=== PATIENT | female | born 1995 | race Caucasian/White ===

== ENCOUNTER 2016-02-15 19:49 | Emergency (ER) | payer OTHER ==
[2016-02-15 20:49] VITALS: BP 117/74; PULSE 59; RESP 16; TEMP 98.4; O2SAT 96
--- NOTE | 2016-02-15 20:58 | UCPHY ---
H & P Time Seen by Provider: 02/15/16 20:56 Patient Type: New HPI/ROS: CHIEF COMPLAINT: Left mid-thoracic pain. HISTORY OF PRESENT ILLNESS: The patient is a 20-year-old female who presents with atraumatic left mid-thoracic pain, onset last night in the middle of the night. The pain is described as sharp and does not radiate. The pain is worsened with deep breathing, movement, or pressure.. She denies associated fever, urinary symptoms, cold symptoms, right-sided back pain, recent sickness. She took Advil this morning for the pain to no effect. REVIEW OF SYSTEMS: Aside from elements discussed in the HPI, a comprehensive 10-point review of systems was reviewed and is negative. PAST MEDICAL HISTORY: Benign retinal tumor removal. SOCIAL HISTORY: Here with boyfriend, nonsmoker. VITAL SIGNS: Reviewed by me GENERAL: Well-developed, well-nourished, resting comfortably in no respiratory distress. HEENT: Atraumatic. Eyes: No icterus, no injection. Mouth: moist mucous membranes. No erythema or lesions. Neck: supple with no adenopathy. LUNGS: Clear to auscultation bilaterally, no wheezes, rhonchi or rales. CARDIAC: Regular rate and rhythm, no rubs, murmurs or gallops. ABDOMEN: Soft, nontender, nondistended, bowel sounds normal. BACK: Focal tenderness at the left posterior lower ribs. This is where the patient's pain is located when she breathes. No CVA tenderness. EXTREMITIES: No trauma. No edema. Range of motion is normal throughout. NEURO: Alert and oriented, grossly nonfocal. SKIN: Warm and dry, no rash. PSYCHIATRIC: Normal mentation, no agitation. Portions of this note were transcribed by a medical records receptionist. I personally performed a history, physical exam, medical decision making, and confirmed accuracy of information the transcribed note. Smoking Status: Never smoked Constitutional: Initial Vital Signs Temperature (C) 36.9 C 02/15/16 20:45 Heart Rate 59 L 02/15/16 20:45 Respiratory Rate 16 02/15/16 20:45 Blood Pressure 117/74 02/15/16 20:45 O2 Sat (%) 96 02/15/16 20:45 O2 Delivery Mode Room Air Allergies/Adverse Reactions: No Known Allergies Allergy (Unverified 02/15/16 20:42) Home Medications: Medication Instructions Recorded Control 02/15/16 Medical Decision Making - Diagnostics Imaging: X-ray of the chest was obtained. I viewed the images myself on the PACS system. My interpretation of the images is: no acute process. The radiologist interpretation is pending at this time. I discussed the x-ray findings with the patient. ED Course/Re-evaluation: An IV was established. The patient is on control so a d-dimer was ordered to rule out blood clot. UA ordered. Chest x-ray ordered. 30mg IV Toradol administered for pain. Patient's urine positive for nitrates. D-dimer is negative. - Data Points Laboratory Results: 02/15/16 21:30 D-Dimer 0.27 ug/mLFEU (0.00-0.50) Urine Color YELLOW Urine Appearance HAZY Urine pH 6.5 (5.0-7.5) Ur Specific [place] 1.025 (1.002-1.030) Urine Protein NEGATIVE (NEGATIVE) Urine Ketones NEGATIVE (NEGATIVE) Urine Blood NEGATIVE (NEGATIVE) Urine Nitrate POSITIVE H (NEGATIVE) Urine Bilirubin NEGATIVE (NEGATIVE) Urine Urobilinogen 0.2 EU (0.2-1.0) Ur Leukocyte Esterase NEGATIVE (NEGATIVE) Urine RBC NONE SEEN /hpf (0-3) Urine WBC 1-3 /hpf (0-3) Ur Epithelial Cells 3+ H /lpf (NONE-1+) Urine Bacteria 2+ H /hpf (NONE SEEN) Urine Mucus 2+ H /lpf (NONE-1+) Urine Yeast OCCASIONAL H /hpf (NONE SEEN) Urine Glucose NEGATIVE (NEGATIVE) Medications Given: Discontinued Medications Ketorolac Tromethamine (Toradol) 30 mg IVP EDNOW ONE Stop: 02/15/16 21:12 Last Admin: 02/15/16 21:29 Dose: 30 mg Departure - Departure Disposition: Home, Routine, Self-Care Clinical Impression: musculoskeletal back pain Condition: Good Instructions: Thoracic Pain (ED) Additional Instructions: Take 600mg Ibuprofen every 6-8 hours as needed for pain. Follow up with your primary care provider in the next 2-3 days if symptoms are not improving. Return to the Urgent Care or seek out the emergency department if you experience serious worsening of condition. Referrals: NONE *PRIMARY CARE P,. [Primary Care Provider] - As per Instructions - PQRS PQRS Measurement: Not applicable. Report Scribed for: Shira Rucker Report Scribed by: Reji Terrell Date of Report: 02/15/16 Time of Report: 20:56
[2016-02-15] MEDS ORDERED: KETOROLAC 30 MG/1 ML SDV IVP ONE (21:11)
[2016-02-15 21:36] LABS: COLOR YELLOW; LEUKOCYTE ESTERASE,URINE NEGATIVE (NEGATIVE); PH,URINE 6.5 (5.0-7.5)
[2016-02-15 21:37] LABS: NITRITE,URINE POSITIVE (NEGATIVE)
[2016-02-15 21:43] LABS: BACTERIA 2+ /hpf (NONE SEEN); MUCUS 2+ /lpf (NONE-1+); RBC,URINE NONE SEEN /hpf (0-3); YEAST OCCASIONAL /hpf (NONE SEEN)
--- NOTE | 2016-02-15 22:36 | DX ---
PA and Lateral Chest February 15, 2016 Indication: Left posterior chest pain. No trauma. Findings: The lungs are well aerated and clear. No pneumothorax, consolidation, or effusion. The hear t size is normal. No discernible rib fracture or bone lesion. Impression: Normal clear lungs. No acute process.
== END 2016-02-15 22:34 | disposition home or self-care (01) ==
LOC: CED 19:49
DX: M54.6 Pain in thoracic spine (principal)
CPT/HCPCS: 71020-PO; 81003-PO; 81015-PO; 85378-PO; 96374-PO; G0463-PO